=== PATIENT | male | born 1990 | race Caucasian/White ===

== ENCOUNTER → 2021-09-27 | Outpatient (CLI) | payer OTHER ==
--- NOTE | 2021-09-27 12:58 | KCIC ---
EXAMINATION: MRI RIGHT KNEE WITHOUT IV CONTRAST CLINICAL HISTORY: Right knee pain and swelling. DOI 08/27/2021. Jumped off of a conveyer belt. Pain is anterior and lateral. TECHNIQUE: Multiplanar multisequential images obtained through the knee without intravenous contrast. COMPARISON: None FINDINGS: MENISCI: Medial Meniscus: Intact. Lateral Meniscus: Intact. LIGAMENTS: ACL: Intact PCL: Intact MCL: Intact LCL Complex: Intact CARTILAGE: Medial Femoral Condyle: Normal Medial Tibial Plateau: Normal Lateral Femoral Condyle: Normal Lateral Tibial Plateau: Small area(s) of low grade (less than 50% thickness) partial thickness cartil age loss and or fissuring Patella: Small area(s) of full thickness cartilage loss and or fissuring with subchondral marrow reac tive/cystic changes in the medial facet Trochlea: Small areas(s) of predominantly low grade (less than 50% thickness) cartilage loss and or f issuring with smaller area(s) of high grade (greater than 50% thickness) cartilage loss and or fissur ing centrally TENDONS: Distal quadriceps and patellar tendons intact. Popliteus tendon intact. BONES AND MARROW: Mild marrow edema in the lateral femoral condyle, nonspecific but could be related to a small residual bone contusion. No evidence of acute fracture or suspicious marrow replacing proc ess. MUSCLES: Muscle bulk and signal intensity within normal limits. JOINT FLUID AND SYNOVIUM: Small joint effusion. No synovitis. No Zacarias's cyst. IMPRESSION: No meniscus tear or acute ligamentous injury. Nonspecific bone marrow edema in the lateral femoral condyle as described. Mild chondral wear in the patellofemoral compartment. Electronically signed by: Navarro Fu DO (09/27/2021 12:56 PM) [id number]
== END ==
LOC: KCIC MRI 10:34 → EEVIPCON 11:00
PROVIDERS: ATTEND Nurse Practitioner Family
DX: M25.461 Effusion, right knee (principal); R60.0 Localized edema; M25.861 Other specified joint disorders, right knee; M25.561 Pain in right knee
CPT/HCPCS: 73721